=== PATIENT | female | born 1955 | race Caucasian/White ===

== ENCOUNTER 2019-04-25 14:51 | Emergency (ER) | payer MEDICARE ==
[2019-04-25] MEDS: KETOROLAC 60 MG INJ IM (15:29)
== END 2019-04-25 15:54 | disposition home or self-care (01) ==
LOC: E/R 14:51
DX: H11.31 Conjunctival hemorrhage, right eye (principal); M25.511 Pain in right shoulder
CPT/HCPCS: 96372; 99284-25

== ENCOUNTER 2019-04-25 18:58 | Emergency (ER) | payer MEDICARE ==
[2019-04-25] MEDS: ALPRAZOLAM 0.25 MG TAB PO (20:14)
== END 2019-04-25 22:43 | disposition home or self-care (01) ==
LOC: E/R 18:58
DX: M25.511 Pain in right shoulder (principal)
CPT/HCPCS: 99283